=== PATIENT | male | born 1950 | race Caucasian/White ===

== ENCOUNTER → 2017-02-18 | Outpatient (CLI) | payer MEDICARE, OTHER | LOC: KOH-I 13:14 | DX: M54.5 Low back pain (principal) | CPT/HCPCS: 72110 ==

== ENCOUNTER → 2022-02-26 | Outpatient (CLI) | payer MEDICARE | LOC: EXRD 13:30 | DX: I65.23 Occlusion and stenosis of bilateral carotid arteries (principal); I73.89 Other specified peripheral vascular diseases | CPT/HCPCS: 93880; 93925 ==